=== PATIENT | male | born 1950 | race Two or more races ===

== ENCOUNTER → 2019-11-15 | Outpatient (CLI) | payer OTHER ==
--- NOTE | 2019-11-15 11:15 | RAD ---
HAND RIGHT 3V 11/15/2019 12:00 AM INDICATION: Pain COMPARISON: None available. TECHNIQUE: 3 views the right hand are provided. FINDINGS/ IMPRESSION: 1. No acute fracture or dislocation is identified. 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 2. Vascular calcifications are identified. 2. There is bowing of the distal phalanx of the fifth digit which may reflect sequela of remote trauma. Electronically signed by: Becky Evans MD (11/15/2019 11:12 AM) [id number]
== END | disposition home or self-care (01) ==
LOC: DXRAD 09:59
PROVIDERS: ATTEND Physician Assistant
DX: M19.041 Primary osteoarthritis, right hand (principal)
CPT/HCPCS: 73130